=== PATIENT | female | born 1980 | race Caucasian/White ===

== ENCOUNTER 2017-04-18 12:21 | Emergency (ER) | payer OTHER ==
[2017-04-18] MEDS ORDERED: Lactated Ringers 1,000 ML IV ONE (14:03)
[2017-04-18] MEDS ORDERED: diphenhydrAMINE 50 MG/ML SDV IVPUSH ONE (14:04)
[2017-04-18] MEDS ORDERED: Prochlorperazine 10 MG in Sodium Chloride 0.9% 50 ML IV ONE (14:05)
--- NOTE | 2017-04-18 14:12 | EDM.PDOC ---
ED HPI GENERAL MEDICAL PROBLEM - General Chief Complaint: Headache Stated Complaint: MIGRAINE; VOMITING Time Seen by Provider: 04/18/17 13:50 Source of Information: Reports: Patient, Old Records History Limitations: Reports: No Limitations - History of Present Illness INITIAL COMMENTS - FREE TEXT/NARRATIVE: 37 yo female presents with a L sided WEEMS and nausea for a couple days. Not keeping anything down since yesterday. No fever. No hematemesis. No unilateral weakness or numbness. No recent head trauma. Here with her . Onset Date: 04/16/17 Duration: Day(s):, Constant Location: Reports: Head Quality: Reports: Ache Severity: Moderate Improves with: Reports: None Worsens with: Reports: None Context: Reports: Other (Had WEEMS's as a child last) Associated Symptoms: Reports: Headaches, Loss of Appetite, Nausea/Vomiting. 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) (none) - Related Data Allergies Allergy/AdvReac Type Severity Reaction Status Date / Time Iodinated Contrast- Oral and Allergy Anaphylactic Verified 04/18/17 13:54 IV Dye Shock naproxen Allergy Swelling Verified 04/18/17 13:54 Home Meds: Home Meds NK [No Known Home Meds] 04/18/17 [History] Past Medical History Musculoskeletal History: Reports: RA - Past Surgical History GI Surgical History: Reports: Appendectomy Social & Family History - Tobacco Use Smoking Status *Q: Never Smoker ED ROS GENERAL - Review of Systems Review Of Systems: See Below Constitutional: Reports: No Symptoms HEENT: Reports: Other (mild photophobia) Respiratory: Reports: No Symptoms Cardiovascular: Reports: No Symptoms Endocrine: Reports: No Symptoms GI/Abdominal: Reports: Anorexia, Nausea, Vomiting. Denies: Black Stool, Bloody Stool, Constipation, Diarrhea, Decreased Appetite, Distension, Hematemesis, Hematochezia, Melena : Reports: No Symptoms Musculoskeletal: Reports: No Symptoms Skin: Reports: No Symptoms Neurological: Reports: Headache. Denies: Confusion, Dizziness, Numbness, Tingling, Weakness Psychiatric: Reports: No Symptoms - Physical Exam Exam: See Below Exam Limited By: No Limitations General Appearance: Alert, WD/WN, No Apparent Distress, Obese Eye Exam: Bilateral Eye: Normal Inspection Ears: Normal External Exam, Normal Canal, Hearing Grossly Normal, Normal TMs Nose: Normal Inspection, Normal Mucosa, No Blood Throat/Mouth: Normal Inspection, Normal Lips, Normal Oropharynx, Normal Voice, No Airway Compromise Head Exam: Atraumatic, Normocephalic Neck: Normal Inspection Respiratory/Chest: No Respiratory Distress, Lungs Clear, Normal Breath Sounds, No Accessory Muscle Use Cardiovascular: Regular Rate, Rhythm, No Edema GI/Abdominal: Soft, Non-Tender, No Distention Neuro Exam (Abbreviated): Alert, Oriented, CN II-XII Intact, Normal Cognition, No Motor/Sensory Deficits Back Exam: Normal Inspection. No: CVA Tenderness (R), CVA Tenderness (L) Extremities: Normal Inspection, Normal Range of Motion, Non-Tender, No Pedal Edema Psychiatric: Normal Affect, Normal Mood Skin Exam: Warm, Dry, Intact, Normal Color, No Rash Course - Vital Signs Text/Narrative:: Feeling a lot better with these meds, no nausea or WEEMS remains. - Orders/Labs/Meds Meds: Medications Discontinued Medications Generic Name Dose Route Start Last Admin Trade Name Kennethq PRN Reason Stop Dose Admin Diphenhydramine HCl 25 mg 04/18/17 14:04 04/18/17 14:26 Benadryl IVPUSH 04/18/17 14:05 25 mg ONETIME ONE Administration Lactated Ringer's 1,000 mls @ 1,000 mls/hr 04/18/17 14:03 04/18/17 14:26 Ringers, Lactated IV 04/18/17 15:02 1,000 mls/hr BOLUS ONE Administration Prochlorperazine Edisylate 10 52 mls @ 150 mls/hr 04/18/17 14:05 04/18/17 14: 26 mg/ Sodium Chloride IV 04/18/17 14:25 150 mls/hr ONETIME ONE Administration Departure - Departure Time of Disposition: 15:30 Disposition: Home, Self-Care 01 Condition: Good Clinical Impression: Migraine Qualifiers: Migraine type: without aura Status migrainosus presence: without status migrainosus Intractability: not intractable Qualified Code(s): G43.009 - Migraine without aura, not intractable, without status migrainosus Nausea and vomiting Qualifiers: Vomiting type: unspecified Vomiting Intractability: non-intractable Qualified Code(s): R11.2 - Nausea with vomiting, unspecified - Discharge Information Referrals: PCP,None [Primary Care Provider] - Forms: ED Department Discharge
== END 2017-04-18 15:23 | disposition home or self-care (01) ==
LOC: JP.ED 12:21
DX: G43.009 Migraine without aura, not intractable, without status migrainosus (principal); Z88.8 Allergy status to other drugs, medicaments and biological substances; Z91.041 Radiographic dye allergy status
CPT/HCPCS: 96361; 96365; 96375; 99284; J0780; J1200; J7050; J7120

== ENCOUNTER 2023-06-30 07:05 | Emergency (ER) | payer BC, OTHER ==
[2023-06-30] MEDS ORDERED: fentaNYL 100 MCG/2 ML SDV IM ONE (07:22)
[2023-06-30] MEDS ORDERED: Cyclobenzaprine 10 MG Tab PO ONE (07:22)
[2023-06-30] MEDS ORDERED: predniSONE 20 MG Tab PO ONE (07:23)
[2023-06-30] MEDS ORDERED: HYDROmorphone 1 MG/ML Syringe IM ONE (09:20)
== END 2023-06-30 12:03 | disposition home or self-care (01) ==
LOC: JP.ED 07:05
DX: M54.50 Low back pain, unspecified (principal); Z88.6 Allergy status to analgesic agent; Z91.041 Radiographic dye allergy status; Z91.013 Allergy to seafood
CPT/HCPCS: 96372; 99283; 99283-25; A9270-GY; J1170; J3010; J7512